=== PATIENT | female | born 1970 | race Caucasian/White ===

== ENCOUNTER 2019-12-08 13:25 | Emergency (ER) | payer SELFPAY ==
[2019-12-08 14:14] VITALS: BP 108/58
--- NOTE | 2019-12-08 14:23 | UC ---
Skin Complaint HPI - HPI Summary HPI Summary: 49-year-old woman comes in with chief complaint of rash. Started yesterday morning. Is red and raised and itchy. Reminds her of a previous time when she had an allergic reaction to latex. Patient reports that the facemasks she's been using at work have latex and them. No difficulty swallowing no shortness of breath. Has tried Benadryl with minimal relief. - History of Current Complaint Chief Complaint: UCRash Time Seen by Provider: 12/08/19 14:03 Stated Complaint: SKIN CONCERN Hx Last Menstrual Period: irregular - 2 months ago Pain Intensity: 9 - Allergy/Home Medications Allergies/Adverse Reactions: Allergies Allergy/AdvReac Type Severity Reaction Status Date / Time MS Latex [Latex] Allergy Severe Hives Verified 11/03/14 11:12 MS Prochlorperazine Allergy Severe See Comment Verified 11/03/14 11:12 [From Compazine] MS Cephalexin [From Keflex] Allergy Intermediate Hives Verified 11/03/14 11:12 MS Penicillins [Penicillins] Allergy Intermediate Hives Verified 11/03/14 11:12 MS Shellfish Allergy Allergy Hives Verified 11/03/14 11:12 [Shellfish Allergy] Home Medications: Home Medications Ibuprofen TAB* [Motrin TAB*] 400 mg PO Q6H PRN 11/02/14 [History Confirmed 12/07] Diphenhydramine HCl/Zinc Acet [Benadryl Itch Cooling Everly] 59 ml TP DAILY PRN 12/08/19 [History Confirmed 12/08/19] diphenhydrAMINE HCl [Benadryl Allergy 25 MG CAP] 50 mg PO Q6H PRN 12/08/19 [ History Confirmed 12/08/19] predniSONE 20 mg TAB [Deltasone 20 MG TAB*] 40 mg PO DAILY PRN #10 tab 12/08/19 [Rx] PMH/Surg Hx/FS Hx/Imm Hx Previously Healthy: Yes - Surgical History Surgical History: Yes Surgery Procedure, Year, and Place: 3 c-sections. LEFT CARPAL TUNNEL. APPENDECTOMY. RIGHT ANKLE SX - Family History Known Family History: Positive: Non-Contributory - Social History Alcohol Use: None Substance Use Type: None Smoking Status (MU): Heavy Every Day Tobacco Smoker Type: Cigarettes Amount Used/How Often: 1/2ppd Length of Time of Smoking/Using Tobacco: 17 yrs Household Exposure Type: Cigarettes - Immunization History Most Recent Influenza Vaccination: 2012 Review of Systems All Other Systems Reviewed And Are Negative: Yes Constitutional: Positive: Negative Skin: Positive: Other - SEE HPI Eyes: Positive: Negative ENT: Positive: Negative Respiratory: Positive: Negative Motor: Positive: Negative Neurovascular: Positive: Negative Musculoskeletal: Positive: Negative Neurological/Mental Status: Positive: Negative Psychological: Positive: Negative Is Patient Immunocompromised?: No Physical Exam Triage Information Reviewed: Yes Appearance: Well-Appearing, No Pain Distress, Well-Nourished Vital Signs: Initial Vital Signs Temp 98.1 F 12/08/19 14:07 Pulse 91 12/08/19 14:07 Resp 15 12/08/19 14:07 BP 108/58 12/08/19 14:07 Pulse Ox 96 12/08/19 14:07 Vital Signs Reviewed: Yes Eye Exam: Normal Eyes: Positive: Conjunctiva Clear ENT: Negative: Muffled voice, Hoarse voice Neck: Positive: Supple Respiratory: Positive: No respiratory distress Musculoskeletal: Positive: Strength Intact, ROM Intact Neurological: Positive: Alert Psychological: Positive: Age Appropriate Behavior Skin: Positive: Other - Patient has a diffuse erythematous rash that slightly raised on her arms chest. Course/Dx - Course Course Of Treatment: With the rash moving and being raised itchy some swelling allergic reaction quite possibly to latex. Will continue Benadryl as needed if helpful also can add Pepcid. Patient given first dose of prednisone here. Patient's to get reevaluated if her condition is not improving or worse. Discussed that if she had difficulty breathing or swallowing she should the emergency department. - Diagnoses Provider Diagnosis: Allergic reaction Discharge ED - Sign-Out/Discharge Documenting (check all that apply): Patient Departure All imaging exams completed and their final reports reviewed: No Studies - Discharge Plan Condition: Stable Disposition: HOME Prescriptions: predniSONE 20 mg TAB [Deltasone 20 MG TAB*] 40 mg PO DAILY PRN #10 tab PRN Reason: Allergy Symptoms Patient Education Materials: General Allergic Reaction (ED) Forms: *Work Release Referrals: RAYA Telles [Primary Care Provider] - Additional Instructions: FOLLOW UP WITH YOUR DOCTOR IF NOT COMPLETELY IMPROVED. GET REEVALUATED IF NOT IMPROVING OR WORSE; DIFFICULTY SWALLOWING OR BREATHING OR ANY QUESTIONS OR CONCERNS. TAKE BENADRYL 50MG EVERY 6 HOURS NEEDED TAKE PEPCID 20MG TWICE A DAY NEEDED TAKE PREDNISONE DIRECTED NEEDED - Billing Disposition and Condition Condition: STABLE Disposition: Home
== END 2019-12-08 14:29 | disposition home or self-care (01) ==
LOC: UCCORT 13:25
DX: T78.40XA Allergy, unspecified, initial encounter (principal); R21 Rash and other nonspecific skin eruption; X58.XXXA Exposure to other specified factors, initial encounter; Z88.8 Allergy status to other drugs, medicaments and biological substances; Z88.1 Allergy status to other antibiotic agents; Z91.040 Latex allergy status; Z88.0 Allergy status to penicillin; Z91.013 Allergy to seafood; F17.210 Nicotine dependence, cigarettes, uncomplicated
CPT/HCPCS: 99202; G0463; J7512

== ENCOUNTER 2019-12-18 09:10 | Emergency (ER) | payer SELFPAY ==
[2019-12-18 09:28] VITALS: BP 131/67
== END 2019-12-18 10:01 | disposition home or self-care (01) ==
LOC: UCEAST 09:10